=== PATIENT | male | born 1990 | race Caucasian/White ===

== ENCOUNTER → 2021-04-27 13:23 | Outpatient (CLI) | payer OTHER, SELFPAY ==
--- NOTE | 2021-04-27 | DI.ECHO.S_ITS ---
[facility] +---------+ : : [address] : [place] [address] : : : : [phone] : : : : Phone: [phone]+ Echocardiogram Report + + :Name: RAYRAY CHAN Study Date: 04/27/2021 Height: 70 in : :[facility] ReadingLocation: Weight: 185 lb : : Gender: Male BSA: 2.0 m2 : :: 1990 Age: 31 yrs BP: 170/96 mmHg: :Reason For Study: CARDIOMEGALY : :Ordering Physician: CESARIO, : :ARI Performed By: Shaye Diaz : :Referring: ARI WHELAN : + + Interpretation Summary The ejection fraction is estimated to be 60-65%. Diastolic parameters suggest probable normal left ventricular diastolic function and normal filling pressures. The right ventricle is normal in size and function. The aortic valve is bicuspid. There is mild to moderate aortic regurgitation. Unable to estimate PASP. Procedure: A two-dimensional transthoracic echocardiogram with color flow and Doppler was performed. The study quality was technically adequate. There is no prior echocardiogram noted for this patient. The patient was in sinus rhythm with heart rates between 69-86 bpm during the exam. Left Ventricle: The left ventricle is normal in size and wall thickness. The ejection fraction is estimated to be 60-65%. Diastolic parameters suggest probable normal left ventricular diastolic function and normal filling pressures. Right Ventricle: The right ventricle is normal in size and function. Atria: Both atria are normal in size. There is no Doppler evidence for an interatrial shunt. Mitral Valve: The mitral valve is normal in structure and function. There is trace mitral regurgitation. Aortic Valve: The aortic valve is bicuspid. The aortic valve opens well. There is no aortic valve stenosis. There is mild to moderate aortic regurgitation. Tricuspid Valve: The tricuspid valve is normal in structure and function. There is trace tricuspid regurgitation. Pulmonary artery pressures cannot be estimated because of the lack of a measurable TR jet velocity but the IVC suggests a CVP of around 3 mmHg. Pulmonic Valve: The pulmonic valve leaflets are thin and pliable; valve motion is normal. There is no pulmonic valvular regurgitation. Great Vessels: The aortic root is normal size. The ascending aorta is mildly enlarged. The IVC is of normal diameter and collapses greater than 50% with a sniff. This suggests a low right atrial pressure of 3 mm Hg. Pericardium/ Pleura There is no pericardial effusion. There is no pleural effusion. MMode/2D Measurements & Calculations LVIDd: 5.7 cm LVOT diam: 2.4 cm LVIDs: 3.5 cm Ao root diam: 3.3 cm FS: 39.5 % asc Aorta Diam: 3.5 cm IVSd: 0.59 cm Ao Arch Diam (Prox Trans): 2.7 cm LVPWd: 0.85 cm LV estrada. diameter/BSA (cm/m^2): 2.8 LV sys. diameter/BSA (cm/m^2): 1.7 LA A2 area: 18.8 cm2 RA long axis: 4.7 cm LA A4 area: 14.5 cm2 RA area: 12.6 cm2 LA length (vol): 4.4 cm RA vol: 28.6 ml LA vol: 53.4 ml RA : 14.1 ml/m2 LA vol index: 26.4 ml/m2 IVC diam: 1.4 cm RVD1 (basal): 3.9 cm TAPSE: 2.2 cm Doppler Measurements & Calculations Ao V2 max: 170.5 cm/sec LVOT Max Jose Luis: 103.7 cm/sec Ao V2 mean: 117.7 cm/sec LV V1 max P.3 mmHg Ao max P.7 mmHg LV V1 VTI: 20.2 cm Ao mean P.5 mmHg ALDA(I,D): 2.8 cm2 Ao V2 VTI: 31.7 cm ALDA(V,D): 2.7 cm2 sev ratio: 0.64 ALDA indexed to BSA (cm^2/m^2): 1.4 AI P1/2t: 651.6 msec AI dec slope: 209.8 cm/sec2 MV E max jose luis: 97.6 cm/sec PA V2 max: 129.7 cm/sec MV A max jose luis: 72.5 cm/sec PA V2 mean: 82.9 cm/sec MV E/A: 1.3 PA mean P.3 mmHg Med Peak E' Jose Luis: 10.5 cm/sec PA pr(Accel): 17.3 mmHg E/E' med: 9.3 Lat Peak E' Jose Luis: 16.5 cm/sec E/E' lat: 5.9 E/e' average: 7.6 MV dec time: 0.21 sec SVLVOT): 89.4 ml Reading Physician:02:48 PM
== END ==
DX: Q23.1 Congenital insufficiency of aortic valve (principal); I51.7 Cardiomegaly; I77.89 Other specified disorders of arteries and arterioles
CPT/HCPCS: 93306

== ENCOUNTER → 2023-03-07 15:57 | Outpatient (CLI) | payer OTHER, SELFPAY ==
--- NOTE | 2023-03-07 | DI.ECHO.S_ITS ---
[facility]---------+ [facility] +---------+ : : [address] : : [place] [address] : : : : [phone] : : : : Phone: [phone] +[phone]+ Echocardiogram Report + + :Name: RAYRAY CHAN Study Date: 03/07/2023 Height: 71 in : :[facility] ReadingLocation: Weight: 195 lb : : Gender: Male BSA: 2.1 m2 : :: 1990 Age: 32 yrs BP: 167/99 mmHg: :Reason For Study: Nonrheumatic Aortic Valve Insufficiency : :Ordering Physician: INOCENCIA CHICAS : :P Performed By: Latrice Marshall : :Referring: INOCENCIA CHICAS P : + + Interpretation Summary The ejection fraction is estimated to be 60-65%. Diastolic parameters suggest probable normal left ventricular diastolic function and normal filling pressures. The right ventricular systolic function is normal. Pulmonary artery pressures cannot be estimated because of the lack of a measurable TR jet velocity. There is mild aortic stenosis. There is mild aortic regurgitation. The aortic valve is bicuspid. No significant change from prior study in 2020. Procedure: A two-dimensional transthoracic echocardiogram with color flow and Doppler was performed. The study quality was technically good. Comparison is made with the echocardiogram of 04/27/2021. The patient was in normal sinus rhythm during the exam. Left Ventricle: The left ventricle is normal in size. The ejection fraction is estimated to be 60-65%. Diastolic parameters suggest probable normal left ventricular diastolic function and normal filling pressures. Right Ventricle: The right ventricle is normal size. The right ventricular systolic function is normal. Atria: The left atrial size is normal. Right atrial size is normal. There is no Doppler evidence for an interatrial shunt. Mitral Valve: The mitral valve leaflets appear mildly thickened, but open well. There is no mitral valve stenosis. There is trace mitral regurgitation. Aortic Valve: The aortic valve is bicuspid. There is mild aortic stenosis. The peak aortic velocity is 2.25 m/sec. The aortic valve mean gradient is 10 mmHg. There is mild aortic regurgitation. Tricuspid Valve: The tricuspid valve is normal. There is no tricuspid stenosis. There is trace tricuspid regurgitation. Pulmonary artery pressures cannot be estimated because of the lack of a measurable TR jet velocity. Pulmonic Valve: The pulmonic valve leaflets are thin and pliable; valve motion is normal. There is no pulmonic valvular stenosis. There is no pulmonic valvular regurgitation. Great Vessels: The aortic root is mildly dilated. The ascending aorta is normal in size. The pulmonary artery is normal size. The IVC is of normal diameter and collapses greater than 50% with a sniff. This suggests a low right atrial pressure of 3 mm Hg. Pericardium/ Pleura There is no pericardial effusion. There is no pleural effusion. MMode/2D Measurements & Calculations LVIDd: 4.8 cm LVOT diam: 2.3 cm LVIDs: 3.4 cm Ao root diam: 3.7 cm FS: 29.2 % asc Aorta Diam: 3.5 cm IVSd: 1.5 cm LVPWd: 1.1 cm LV estrada. diameter/BSA (cm/m^2): 2.3 LV sys. diameter/BSA (cm/m^2): 1.6 LA A2 area: 18.0 cm2 RA long axis: 4.8 cm LA A4 area: 17.3 cm2 RA area: 10.8 cm2 LA length (vol): 5.1 cm RA vol: 20.9 ml LA vol: 51.9 ml RA : 10.0 ml/m2 LA vol index: 24.9 ml/m2 RVD1 (basal): 3.1 cm LVLs ap4: 7.6 cm LVLd ap2: 9.0 cm TAPSE_phl: 2.5 cm LVLs ap2: 7.4 cm Doppler Measurements & Calculations Ao V2 max: 225.0 cm/sec LVOT Max Jose Luis: 123.0 cm/sec Ao V2 mean: 142.0 cm/sec LV V1 max P.1 mmHg Ao max P.0 mmHg LV V1 VTI: 25.0 cm Ao mean P.0 mmHg ALDA(I,D): 2.4 cm2 Ao V2 VTI: 43.7 cm ALDA(V,D): 2.3 cm2 sev ratio: 0.57 ALDA indexed to BSA (cm^2/m^2): 1.1 MV E max jose luis: 122.0 cm/sec PA V2 max: 146.0 cm/sec MV A max jose luis: 56.3 cm/sec PA V2 mean: 102.0 cm/sec MV E/A: 2.2 PA mean P.0 mmHg Med Peak E' Jose Luis: 10.3 cm/sec PA pr(Accel): 29.0 mmHg E/E' med: 11.8 Lat Peak E' Jose Luis: 19.7 cm/sec E/E' lat: 6.2 E/e' average: 9.0 MV dec time: 0.23 sec SV(LVOT): 103.9 ml AV VR_phl: 0.55 ALDA(VTI)/BSA_phl: 1.1 MV P1/2t-pr_phl: 68.0 msec Reading Physician:PM
== END ==
PROVIDERS: PCP Student in an Organized Health Care Education/Training Program; Referring Provider Student in an Organized Health Care Education/Training Program; Visit Provider Student in an Organized Health Care Education/Training Program
DX: Q23.1 Congenital insufficiency of aortic valve (principal); I77.810 Thoracic aortic ectasia
CPT/HCPCS: 93306

== ENCOUNTER → 2023-09-01 09:57 | Outpatient (ROUT) | payer OTHER, SELFPAY ==
[2023-09-01 10:42] LABS: Semen Sperm Prescence Post-Vas Absent (ABSENT)
== END ==
PROVIDERS: PCP Student in an Organized Health Care Education/Training Program; Visit Provider Specialist
DX: Z98.52 Vasectomy status (principal)
CPT/HCPCS: 89321